=== PATIENT | female | born 1960 | race Caucasian/White ===

== ENCOUNTER → 2017-01-04 | Outpatient (CLI) | payer BC ==
[~2017-01-04] MED LIST: IMTUNK PO
--- NOTE | 2017-01-04 14:08 | MAMMOGRAPHY REPORT ---
BILATERAL DIGITAL SCREENING MAMMOGRAM TOMOSYNTHESIS WITH CAD: 01/04/2017 TECHNIQUE: Breast tomosynthesis in addition to standard 2D mammography was performed. Current study was also evaluated with a Computer Aided Detection (CAD) system. COMPARISON: Comparison is made to exams dated: 04/21/2013 mammogram, 07/07/2010 mammogram, and 07/07/20 10 ultrasound - [facility]. BREAST COMPOSITION: The tissue of both breasts is extremely dense, which lowers the sensitivity of mammography. FINDINGS: No suspicious masses, calcifications, or areas of architectural distortion are noted in e ither breast. There has been no significant interval change compared to prior exams. Small clusters of faint calcifications seen within the right superior breast, best seen on the MLO view, are stabl e compared to the 2013 exam. IMPRESSION: ACR BI-RADS CATEGORY 2: BENIGN There is no mammographic evidence of malignancy. A 1 year screening mammogram is recommended. The p atient will receive written notification of the results. Approximately 10% of breast cancers are not detected with mammography. A negative mammographic repor t should not delay biopsy if a clinically suggestive mass is present. Sonya Truong M.D. ah/:01/04/2017 12:09:15 [employer]: Silvia BAZAN(Bryon)(True), [facility] letter sent: Normal 1/2 BI-RADS Code: ACR BI-RADS Category 2: Benign
== END | disposition home or self-care (01) ==
LOC: C.MAMM 10:19
PROVIDERS: ATTEND Obstetrics & Gynecology
DX: Z12.31 Encounter for screening mammogram for malignant neoplasm of breast (principal)